=== PATIENT | male | born 1970 | race Two or more races ===

== ENCOUNTER 2022-02-07 21:58 | Emergency (ER) | payer BC ==
[2022-02-07 22:03] VITALS: BMI 31.7
[2022-02-07 22:29] VITALS: BP 111/71; PULSE 68; TEMP 97.8
[2022-02-07] MEDS ORDERED: DOXYCYCLINE HYCLATE 100 MG CAPSULE PO ONE ×2 (22:43→22:48)
== END 2022-02-07 23:03 | disposition home or self-care (01) ==
LOC: FER 21:58
DX: S80.861A Insect bite (nonvenomous), right lower leg, initial encounter (principal); W57.XXXA Bitten or stung by nonvenomous insect and other nonvenomous arthropods, initial encounter
CPT/HCPCS: 99283-25